=== PATIENT | female | born 1955 ===

== ENCOUNTER 2023-03-10 09:38 | Day surgery (SDC) | payer OTHER ==
[~2023-03-10] VITALS: Ht 152.4 cm; Wt 56.7 kg
[2023-03-10] MEDS ORDERED: fentaNYL citrate 0.05 MG/ML VIAL ONE (11:08)
[2023-03-10] MEDS ORDERED: LIDOCAINE 2% 100 MG/5 ML UJET TP ONE (11:08)
[2023-03-10] MEDS ORDERED: fentaNYL citrate 0.05 MG/ML VIAL IVP ONE (13:05)
== END 2023-03-10 12:10 | disposition home or self-care (01) ==
LOC: MDS 09:38 → MMU 09:40 → MDS 12:10
PROVIDERS: ATTEND Internal Medicine Gastroenterology
DX: Z12.11 Encounter for screening for malignant neoplasm of colon (principal); I10 Essential (primary) hypertension; E78.5 Hyperlipidemia, unspecified; G47.00 Insomnia, unspecified; K21.9 Gastro-esophageal reflux disease without esophagitis; M19.90 Unspecified osteoarthritis, unspecified site; Z90.49 Acquired absence of other specified parts of digestive tract; Z90.710 Acquired absence of both cervix and uterus; Z79.899 Other long term (current) drug therapy
CPT/HCPCS: 45378; 82948; J3010